=== PATIENT | male | born 1970 | race Caucasian/White ===

== ENCOUNTER 2018-02-13 18:06 | Emergency (ER) | payer MEDICARE, MEDICAID ==
[~2018-02-13] VITALS: Ht 175.3 cm; Wt 74.0 kg
[2018-02-13 18:45] VITALS: BP 136/88
== END 2018-02-13 20:40 | disposition left against medical advice (07) ==
LOC: ER 18:55
DX: M54.2 Cervicalgia (principal); M54.9 Dorsalgia, unspecified; I10 Essential (primary) hypertension; E11.9 Type 2 diabetes mellitus without complications; W18.39XA Other fall on same level, initial encounter; Y93.89 Activity, other specified; Y92.89 Other specified places as the place of occurrence of the external cause; Y99.8 Other external cause status
CPT/HCPCS: 29515; 82962; 99283

== ENCOUNTER 2018-11-23 20:50 | Inpatient (IN) | payer MEDICARE, MEDICAID ==
[~2018-11-23] VITALS: Ht 175.3 cm; Wt 106.6 kg
[~2018-11-23 20:50] MED LIST: DIAZ10TA MT; OXYC10TA48 MT; QUET100T MT
[2018-11-24] MEDS ORDERED: NITROGLYCERIN OINT 1GM/INCH UDPKT TD ONE (00:15)
[2018-11-24] MEDS ORDERED: ASPIRIN 81MG TABLET PO ONE (00:15)
[2018-11-24 01:00] LABS: BASOPHILS % 0.6 % (0.0-2.0); EOSINOPHILS % 4.8 % (0.0-5.0); HEMOGLOBIN. 11.6 g/dL (14.0-18.0); LYMPHOCYTES % 36.9 % (20.0-50.0); MEAN CORPUSCULAR HEMOGLOBIN 28.9 pg (28.0-32.0); MEAN CORPUSCULAR VOLUME 84.6 fL (80.0-94.0); MONOCYTES % 9.5 % (2.0-8.0); NEUTROPHILS % 48.2 % (40.0-76.0); PLATELET 264 x1000/uL (130-400); RED BLOOD CELL COUNT 4.02 mill/uL (4.7-6.1); RED CELL DISTRIBUTION WIDTH 14.6 % (11.6-14.6)
[2018-11-24 01:04] LABS: CHLORIDE 109 mEq/L (98-107)
[2018-11-24 05:30] VITALS: BP 104/84
[2018-11-24] MEDS ORDERED: BENZ1TAB7 PO (06:46)
[2018-11-24] MEDS ORDERED: ESCI10TA54 PO (06:46)
[2018-11-24] MEDS ORDERED: BUPR300T54 PO (06:46)
[2018-11-24] MEDS ORDERED: ASPI-1158 PO (06:46)
[2018-11-24] MEDS ORDERED: METO25TA6 PO (06:46)
[2018-11-24 08:00] VITALS: BP 102/66
[2018-11-24] MEDS ORDERED: ACETAMINOPHEN 325MG TABLET PO PRN (08:00)
[2018-11-24] MEDS ORDERED: ZOLPIDEM TARTRATE 5MG TABLET PO PRN (08:00)
[2018-11-24] MEDS ORDERED: LORAZEPAM 0.5MG TABLET PO PRN (08:00)
[2018-11-24] MEDS ORDERED: TRAMADOL 50MG TABLET PO PRN (08:00)
[2018-11-24] MEDS ORDERED: IPRATROPIUM/ALBUTEROL 0.5-3(2.5)MG/3ML NEB INH PRN (08:00)
[2018-11-24] MEDS ORDERED: NITROGLYCERIN 0.4MG TABLET SL SL PRN (08:00)
[2018-11-24] MEDS ORDERED: CLONIDINE 0.1MG TABLET PO PRN (08:00)
[2018-11-24] MEDS ORDERED: NA PHOS,M-B/NA PHOS,DI-BA ENEMA 118ML PR PRN (08:00)
[2018-11-24] MEDS ORDERED: GUAIFENESIN 200MG/10ML SUGAR FREE UDC PO PRN (08:00)
[2018-11-24] MEDS ORDERED: ONDANSETRON HCL 4MG/2ML INJ IV PRN (08:00)
[2018-11-24] MEDS ORDERED: MAGNESIUM/ALUMINUM HYDROXIDE/SIMETHICONE 30ML UDC PO PRN (08:00)
[2018-11-24] MEDS ORDERED: DOCUSATE SODIUM 100MG CAPSULE PO PRN (08:00)
[2018-11-24] MEDS ORDERED: REGADENOSON 0.4 MG/5 ML IV ONE ×2 (09:00→11:36)
[2018-11-24] MEDS ORDERED: ASPIRIN 325MG EC TABLET PO SCH (09:00)
[2018-11-24] MEDS: CLOPIDOGREL 75MG TABLET PO SCH (09:12)
[2018-11-24] MEDS: FAMOTIDINE 20MG TABLET PO SCH ×2 (09:12→20:30)
[2018-11-24] MEDS: ASPIRIN 81MG TABLET PO SCH (09:12)
[2018-11-24] MEDS: ENOXAPARIN 30MG/0.3ML SYR SUBCUT SCH ×2 (09:13→20:30)
[2018-11-24] MEDS ORDERED: INFLUENZA VIRUS VACCINE(AFLURIA) 0.5ML SYR IM ONE (10:00)
[2018-11-24 11:05] LABS: BASOPHILS % 0.9 % (0.0-2.0); EOSINOPHILS % 8.5 % (0.0-5.0); HEMATOCRIT. 33.1 % (42.0-52.0); HEMOGLOBIN. 11.2 g/dL (14.0-18.0); MEAN CORPUSCULAR VOLUME 85.7 fL (80.0-94.0); MEAN PLATELET VOLUME 8.6 fl (7.4-10.4); MONOCYTES % 11.1 % (2.0-8.0); NEUTROPHILS % 33.5 % (40.0-76.0); PLATELET 237 x1000/uL (130-400); RED BLOOD CELL COUNT 3.87 mill/uL (4.7-6.1); RED CELL DISTRIBUTION WIDTH 14.4 % (11.6-14.6)
[2018-11-24 11:13] LABS: T4 FREE 1.05 ng/dL (0.76-1.46)
[2018-11-24 16:00] VITALS: BP 100/62
[2018-11-24 17:01] LABS: CREATINE KINASE 138 IU/L (39-308)
[2018-11-24 17:10] LABS: CREATINE KINASE MB FRACTION 2.6 ng/mL (0.5-3.6)
[2018-11-24 20:00] VITALS: BP 102/54
[2018-11-24] MEDS: KETOROLAC 30MG/ML VIAL IV PRN (20:36)
[2018-11-24 23:45] LABS: CREATINE KINASE 112 IU/L (39-308)
[2018-11-24 23:46] LABS: CREATINE KINASE MB FRACTION 2.2 ng/mL (0.5-3.6)
[2018-11-25] VITALS: BP 110/56
[2018-11-25 04:00] VITALS: BP 128/77
[2018-11-25 08:00] VITALS: BP 109/68
[2018-11-25] MEDS: CLOPIDOGREL 75MG TABLET PO SCH (08:19)
[2018-11-25] MEDS: FAMOTIDINE 20MG TABLET PO SCH ×2 (08:19→20:41)
[2018-11-25] MEDS: ASPIRIN 81MG TABLET PO SCH (08:19)
[2018-11-25] MEDS: KETOROLAC 30MG/ML VIAL IV PRN ×2 (08:19→15:40)
[2018-11-25] MEDS: ENOXAPARIN 30MG/0.3ML SYR SUBCUT SCH ×2 (08:25→20:41)
[2018-11-25 12:00] VITALS: BP 100/40
[2018-11-25 16:00] VITALS: BP 117/66
[2018-11-25 17:03] LABS: *BENZODIAZEPINES SCREEN URINE NEGATIVE (NEGATIVE); *COCAINE SCREEN URINE NEGATIVE (NEGATIVE); METHADONE URINE SCREEN NEGATIVE (NEGATIVE); OPIATES URINE SCREEN NEGATIVE (NEGATIVE)
[2018-11-25 17:04] LABS: *AMPHETAMINES SCREEN URINE NEGATIVE (NEGATIVE); CANNABINOID URINE SCREEN NEGATIVE (NEGATIVE); PHENCYCLIDINE URINE SCREEN NEGATIVE (NEGATIVE)
[2018-11-25 17:05] LABS: *BARBITURATES SCREEN URINE NEGATIVE (NEGATIVE)
[2018-11-25 20:00] VITALS: BP 122/58
[2018-11-26] VITALS: BP 108/52
[2018-11-26 04:00] VITALS: BP 103/50
[2018-11-26] MEDS: KETOROLAC 30MG/ML VIAL IV PRN (09:29)
[2018-11-26] MEDS: ASPIRIN 81MG TABLET PO SCH (09:32)
[2018-11-26] MEDS: FAMOTIDINE 20MG TABLET PO SCH (09:32)
[2018-11-26] MEDS: ENOXAPARIN 30MG/0.3ML SYR SUBCUT SCH (09:32)
[2018-11-26] MEDS: CLOPIDOGREL 75MG TABLET PO SCH (09:32)
[2018-11-26 10:31] VITALS: BP 132/78
== END 2018-11-26 10:48 | disposition left against medical advice (07) | DRG 303 ==
LOC: ER 20:50 → 6WST 11-24 03:32 → ENRESERV 11-24 04:36
PROVIDERS: ADMIT Internal Medicine; ATTEND Internal Medicine
DX: I25.110 Atherosclerotic heart disease of native coronary artery with unstable angina pectoris (principal); D63.8 Anemia in other chronic diseases classified elsewhere; E88.81 Metabolic syndrome and other insulin resistance; Z53.21 Procedure and treatment not carried out due to patient leaving prior to being seen by health care provider; E78.5 Hyperlipidemia, unspecified; E11.9 Type 2 diabetes mellitus without complications; F17.210 Nicotine dependence, cigarettes, uncomplicated; I10 Essential (primary) hypertension; Z95.5 Presence of coronary angioplasty implant and graft; Z88.0 Allergy status to penicillin; Z91.040 Latex allergy status
CPT/HCPCS: 36415; 71045; 78452; 80061; 80305; 82550; 82553; 82962; 83036; 83880; 84439; 84443; 84484; 85379; 90686; 93005; 93017; 93306; 93970; 99285; A6261; A9500; J1650; J1885; J2785

== ENCOUNTER 2019-01-26 19:07 | Inpatient (IN) | payer MEDICARE, MEDICAID ==
[~2019-01-26] VITALS: Ht 175.3 cm; Wt 113.4 kg
[~2019-01-26 19:07] MED LIST changes: +ASPI-1158 PO; +BENZ1TAB7 PO; +BUPR300T54 PO; +ESCI10TA54 PO; +METO25TA6 PO
[2019-01-26] MEDS ORDERED: ONDANSETRON HCL 4MG/2ML INJ IV ONE (23:45)
[2019-01-26] MEDS ORDERED: FAMOTIDINE 20MG/2ML VIAL IV ONE (23:45)
[2019-01-26 23:57] LABS: BASOPHILS % 0.7 % (0.0-2.0); EOSINOPHILS % 4.3 % (0.0-5.0); HEMATOCRIT. 41.4 % (42.0-52.0); HEMOGLOBIN. 14.1 g/dL (14.0-18.0); LYMPHOCYTES % 37.2 % (20.0-50.0); MEAN CORPUSCULAR HEMOGLOBIN 28.4 pg (28.0-32.0); MEAN CORPUSCULAR VOLUME 83.4 fL (80.0-94.0); MEAN PLATELET VOLUME 8.3 fl (7.4-10.4); MONOCYTES % 6.9 % (2.0-8.0); NEUTROPHILS % 50.9 % (40.0-76.0); PLATELET 312 x1000/uL (130-400); RED BLOOD CELL COUNT 4.97 mill/uL (4.7-6.1); RED CELL DISTRIBUTION WIDTH 14.3 % (11.6-14.6)
[2019-01-27 00:01] LABS: CHLORIDE 104 mEq/L (98-107)
[2019-01-27] MEDS ORDERED: HYDROCODONE/ACETAMINOPHEN 5/325MG TABLET PO NR (01:15)
[2019-01-27] MEDS ORDERED: ENOXAPARIN 40MG/0.4ML SYR SUBCUT SCH (03:30)
[2019-01-27] MEDS ORDERED: CLONIDINE 0.1MG TABLET PO PRN (03:30)
[2019-01-27] MEDS ORDERED: ONDANSETRON HCL 4MG/2ML INJ IV PRN (03:30)
[2019-01-27] MEDS ORDERED: ACETAMINOPHEN 325MG TABLET PO PRN (03:30)
[2019-01-27] MEDS ORDERED: MAGNESIUM/ALUMINUM HYDROXIDE/SIMETHICONE 30ML UDC PO PRN (03:30)
[2019-01-27] MEDS ORDERED: DIPHENHYDRAMINE 50MG/ML VIAL IV PRN (03:30)
[2019-01-27] MEDS ORDERED: IOHEXOL-300 100 ML BOTTLE ONE (04:22)
[2019-01-27] MEDS ORDERED: DEXT 5%/0.45% NACL 1000ML 1,000 ML IV SCH (07:30)
[2019-01-27 08:25] VITALS: BP 98/52
[2019-01-27] MEDS: PANTOPRAZOLE SODIUM 40 MG/VIAL IV SCH (09:30)
[2019-01-27] MEDS: ENOXAPARIN 30MG/0.3ML SYR SUBCUT SCH ×2 (09:31→20:34)
[2019-01-27] MEDS: SODIUM CHLORIDE 0.9% 1,000 ML IV SCH ×2 (10:47→23:20)
[2019-01-27 12:00] VITALS: BP 121/62
[2019-01-27] MEDS: HYDROMORPHONE HCL/PF 2MG/ML CPJ IV PRN ×2 (12:23→20:44)
[2019-01-27] MEDS ORDERED: KCL 20MEQ/100ML PREMIX 100 ML IV SCH (14:00)
[2019-01-27 15:11] LABS: *AMPHETAMINES SCREEN URINE PRESUMTIVE POSITIVE (NEGATIVE); *BARBITURATES SCREEN URINE NEGATIVE (NEGATIVE)
[2019-01-27 15:12] LABS: *BENZODIAZEPINES SCREEN URINE NEGATIVE (NEGATIVE); *COCAINE SCREEN URINE NEGATIVE (NEGATIVE); CANNABINOID URINE SCREEN NEGATIVE (NEGATIVE); METHADONE URINE SCREEN NEGATIVE (NEGATIVE); OPIATES URINE SCREEN PRESUMTIVE POSITIVE (NEGATIVE); PHENCYCLIDINE URINE SCREEN NEGATIVE (NEGATIVE)
[2019-01-27] MEDS ORDERED: BISACODYL 10MG SUPP PR PRN (15:45)
[2019-01-27] MEDS ORDERED: POTASSIUM CHLORIDE 20MEQ TABLET SR PO SCH (15:45)
[2019-01-27 16:00] VITALS: BP 122/72
[2019-01-27 20:00] VITALS: BP 130/74
[2019-01-27] MEDS: METOPROLOL TARTRATE 25MG TABLET PO SCH (20:32)
[2019-01-27] MEDS: ATORVASTATIN CALCIUM 20MG TABLET PO SCH (20:32)
[2019-01-28] VITALS (7 sets, daily range): BP systolic 102–133; BP diastolic 47–74
[2019-01-28] MEDS: HYDROMORPHONE HCL/PF 2MG/ML CPJ IV PRN ×2 (03:37→11:26)
[2019-01-28] MEDS: SODIUM CHLORIDE 0.9% 1,000 ML IV SCH ×2 (03:43→09:08)
[2019-01-28] MEDS: METOPROLOL TARTRATE 25MG TABLET PO SCH ×2 (09:00→20:44)
[2019-01-28] MEDS: PANTOPRAZOLE SODIUM 40 MG/VIAL IV SCH (09:06)
[2019-01-28] MEDS: ENOXAPARIN 30MG/0.3ML SYR SUBCUT SCH ×2 (09:06→20:33)
[2019-01-28] MEDS: ATORVASTATIN CALCIUM 20MG TABLET PO SCH (20:32)
[2019-01-28] MEDS ORDERED: FAMOTIDINE 20MG TABLET PO SCH (21:00)
[2019-01-29] VITALS: BP 12/68
[2019-01-29 04:00] VITALS: BP 130/75
[2019-01-29 08:00] VITALS: BP 131/86
[2019-01-29] MEDS: ENOXAPARIN 30MG/0.3ML SYR SUBCUT SCH (09:00)
[2019-01-29] MEDS: METOPROLOL TARTRATE 25MG TABLET PO SCH (09:00)
== END 2019-01-29 09:22 | disposition home or self-care (01) | DRG 392 ==
LOC: ER 19:07 → 8WST 01-27 02:02 → ENRESERV 01-27 07:12
PROVIDERS: ADMIT Internal Medicine; ATTEND Internal Medicine
DX: K52.9 Noninfective gastroenteritis and colitis, unspecified (principal); K21.9 Gastro-esophageal reflux disease without esophagitis; R07.89 Other chest pain; E66.9 Obesity, unspecified; F41.9 Anxiety disorder, unspecified; F32.9 Major depressive disorder, single episode, unspecified; I25.10 Atherosclerotic heart disease of native coronary artery without angina pectoris; E11.9 Type 2 diabetes mellitus without complications; E78.5 Hyperlipidemia, unspecified; F17.200 Nicotine dependence, unspecified, uncomplicated; I50.9 Heart failure, unspecified; I11.0 Hypertensive heart disease with heart failure; I25.2 Old myocardial infarction; Z82.49 Family history of ischemic heart disease and other diseases of the circulatory system; Z83.3 Family history of diabetes mellitus; Z95.5 Presence of coronary angioplasty implant and graft; Z90.49 Acquired absence of other specified parts of digestive tract; Z68.36 Body mass index [BMI] 36.0-36.9, adult; Z88.0 Allergy status to penicillin; Z91.040 Latex allergy status
CPT/HCPCS: 36415; 71045; 74177; 80061; 80305; 82962; 84484; 93005; 93306; 96361; 96374; 96375; 99285; C9113; J1170; J1200; J1650; J2405; J3480; J3490; Q9967

== ENCOUNTER 2019-02-07 19:30 | Emergency (ER) | payer MEDICARE, MEDICAID ==
[~2019-02-07] VITALS: Ht 175.3 cm; Wt 111.0 kg
[2019-02-07] MEDS ORDERED: KETOROLAC 30MG/ML VIAL IM ONE (23:00)
[2019-02-07] MEDS ORDERED: DIAZEPAM 5 MG TABLET PO ONE (23:00)
[2019-02-08] MEDS ORDERED: HYDROCODONE/ACETAMINOPHEN 5/325MG TABLET PO ONE (00:30)
[2019-02-08 01:15] VITALS: BP 132/76
== END 2019-02-08 01:19 | disposition home or self-care (01) ==
LOC: ER 19:30
DX: M54.5 Low back pain (principal); G89.29 Other chronic pain; I11.0 Hypertensive heart disease with heart failure; E11.9 Type 2 diabetes mellitus without complications; I25.2 Old myocardial infarction; Z86.79 Personal history of other diseases of the circulatory system; F15.10 Other stimulant abuse, uncomplicated; Z98.61 Coronary angioplasty status; Z79.82 Long term (current) use of aspirin; Z79.899 Other long term (current) drug therapy; Z88.0 Allergy status to penicillin; Z91.040 Latex allergy status
CPT/HCPCS: 96372; 99283; J1885

== ENCOUNTER 2019-02-13 14:10 | Emergency (ER) | payer MEDICARE, MEDICAID ==
[~2019-02-13] VITALS: Ht 180.3 cm; Wt 90.0 kg
[2019-02-13 17:18] LABS: *AMPHETAMINES SCREEN URINE NEGATIVE (NEGATIVE); *BARBITURATES SCREEN URINE NEGATIVE (NEGATIVE); *BENZODIAZEPINES SCREEN URINE NEGATIVE (NEGATIVE); *COCAINE SCREEN URINE NEGATIVE (NEGATIVE); METHADONE URINE SCREEN NEGATIVE (NEGATIVE); OPIATES URINE SCREEN PRESUMTIVE POSITIVE (NEGATIVE)
[2019-02-13 17:19] LABS: CANNABINOID URINE SCREEN NEGATIVE (NEGATIVE); PHENCYCLIDINE URINE SCREEN NEGATIVE (NEGATIVE)
[2019-02-13] MEDS ORDERED: KETOROLAC 60MG/2ML VIAL IM ONE (18:00)
[2019-02-13 19:20] VITALS: BP 110/58
== END 2019-02-13 19:32 | disposition home or self-care (01) ==
LOC: ER 14:10
DX: G89.29 Other chronic pain (principal); M54.9 Dorsalgia, unspecified; I11.0 Hypertensive heart disease with heart failure; I50.9 Heart failure, unspecified; I25.2 Old myocardial infarction; I25.10 Atherosclerotic heart disease of native coronary artery without angina pectoris; E11.9 Type 2 diabetes mellitus without complications; F32.9 Major depressive disorder, single episode, unspecified; F15.10 Other stimulant abuse, uncomplicated; Z98.61 Coronary angioplasty status; Z88.0 Allergy status to penicillin; Z91.040 Latex allergy status; Z79.899 Other long term (current) drug therapy
CPT/HCPCS: 80305; 96372; 99283; J1885

== ENCOUNTER 2020-01-25 12:33 | Inpatient (IN) | payer MEDICARE, MEDICAID ==
[~2020-01-25] VITALS: Ht 175.3 cm; Wt 110.2 kg
[~2020-01-25 12:33] MED LIST changes: +BUPR-315 PO; -BUPR300T54 PO; -ESCI10TA54 PO; +ESCI10TA61 PO
[2020-01-25] MEDS ORDERED: ACETAMINOPHEN 325MG TABLET PO STA (13:02)
[2020-01-25 13:14] LABS: BASOPHILS % 0.9 % (0.0-2.0); EOSINOPHILS % 2.4 % (0.0-5.0); HEMATOCRIT. 46.1 % (42.0-52.0); HEMOGLOBIN. 15.4 g/dL (14.0-18.0); LYMPHOCYTES % 30.5 % (20.0-50.0); MEAN CORPUSCULAR HEMOGLOBIN 28.3 pg (28.0-32.0); MEAN CORPUSCULAR VOLUME 84.8 fL (80.0-94.0); MEAN PLATELET VOLUME 8.5 fl (7.4-10.4); MONOCYTES % 6.3 % (2.0-8.0); NEUTROPHILS % 59.9 % (40.0-76.0); PLATELET 323 x1000/uL (130-400); RED BLOOD CELL COUNT 5.43 mill/uL (4.7-6.1); RED CELL DISTRIBUTION WIDTH 15.1 % (11.6-14.6)
[2020-01-25] MEDS ORDERED: NITROGLYCERIN OINT 1GM/INCH UDPKT TD ONE (13:15)
[2020-01-25] MEDS ORDERED: ASPIRIN 81MG TABLET PO ONE (13:15)
[2020-01-25 13:20] LABS: CHLORIDE 110 mEq/L (98-107)
[2020-01-25 14:27] LABS: PROTHROMBIN TIME 10.4 sec (9.6-11.0)
[2020-01-25 16:14] VITALS: BP 154/102
[2020-01-25 16:25] VITALS: BP 154/102
[2020-01-25] MEDS ORDERED: ACETAMINOPHEN 325MG TABLET PO PRN (17:00)
[2020-01-25] MEDS ORDERED: LORAZEPAM 2MG/ML CPJ IV PRN (17:00)
[2020-01-25] MEDS ORDERED: ENOXAPARIN 40MG/0.4ML SYR SUBCUT SCH (17:00)
[2020-01-25] MEDS ORDERED: CLONIDINE 0.1MG TABLET PO PRN (17:00)
[2020-01-25] MEDS: HYDROCODONE/APAP 7.5/325MG 1 TAB TABLET PO PRN (17:24)
[2020-01-25] MEDS: MORPHINE SULFATE 2 MG/ML CPJ (NOT FOR IM USE) IV PRN (19:57)
[2020-01-25] MEDS: ONDANSETRON HCL 4MG/2ML INJ IV PRN (19:57)
[2020-01-25 20:00] VITALS: BP 138/101
[2020-01-25] MEDS: ENOXAPARIN 30MG/0.3ML SYR SUBCUT SCH (20:00)
[2020-01-25 21:25] VITALS: BP 139/85
[2020-01-25 23:43] LABS: CREATINE KINASE 89 IU/L (39-308)
[2020-01-25 23:45] LABS: CREATINE KINASE MB FRACTION 1.9 ng/mL (0.5-3.6)
[2020-01-26] VITALS: BP 115/67
[2020-01-26] MEDS: MORPHINE SULFATE 2 MG/ML CPJ (NOT FOR IM USE) IV PRN (01:11)
[2020-01-26] MEDS: IPRATROPIUM/ALBUTEROL 0.5-3(2.5)MG/3ML NEB NEB SCH ×3 (01:13→14:48)
[2020-01-26 04:00] VITALS: BP 122/77
[2020-01-26 06:34] LABS: BASOPHILS % 0.6 % (0.0-2.0); EOSINOPHILS % 3.7 % (0.0-5.0); HEMATOCRIT. 40.7 % (42.0-52.0); HEMOGLOBIN. 13.8 g/dL (14.0-18.0); LYMPHOCYTES % 34.9 % (20.0-50.0); MEAN CORPUSCULAR HEMOGLOBIN 28.6 pg (28.0-32.0); MEAN CORPUSCULAR VOLUME 84.8 fL (80.0-94.0); MEAN PLATELET VOLUME 8.4 fl (7.4-10.4); MONOCYTES % 7.5 % (2.0-8.0); NEUTROPHILS % 53.3 % (40.0-76.0); PLATELET 285 x1000/uL (130-400); RED CELL DISTRIBUTION WIDTH 15.1 % (11.6-14.6)
[2020-01-26 06:53] LABS: CHLORIDE 107 mEq/L (98-107)
[2020-01-26 07:09] LABS: PHOSPHORUS 3.9 mg/dL (2.5-4.9)
[2020-01-26 07:11] LABS: CREATINE KINASE 70 IU/L (39-308)
[2020-01-26 08:00] VITALS: BP 126/84
[2020-01-26] MEDS: ASPIRIN 81MG EC TABLET PO SCH (09:30)
[2020-01-26] MEDS: ENOXAPARIN 30MG/0.3ML SYR SUBCUT SCH ×2 (09:30→21:15)
[2020-01-26 12:00] VITALS: BP 145/67
[2020-01-26] MEDS: BUPROPION HCL 150MG TABLET XL 24HR PO SCH (12:08)
[2020-01-26] MEDS: HYDROCODONE/APAP 7.5/325MG 1 TAB TABLET PO PRN (13:10)
[2020-01-26 16:00] VITALS: BP 127/75
[2020-01-26] MEDS: METOPROLOL TARTRATE 25MG TABLET PO SCH (16:13)
[2020-01-26 20:00] VITALS: BP 160/92
[2020-01-26] MEDS ORDERED: ATORVASTATIN CALCIUM 40MG TABLET PO SCH (21:00)
[2020-01-26] MEDS: NITROGLYCERIN OINT 1GM/INCH UDPKT TD SCH (21:15)
[2020-01-26] MEDS: OXYCODONE HCL/ACETAMINOPHEN 5/325MG TABLET PO PRN (21:20)
[2020-01-26] MEDS: ONDANSETRON HCL 4MG/2ML INJ IV PRN (22:46)
[2020-01-27] VITALS: BP 139/81
[2020-01-27 03:16] LABS: CLARITY URINE CLEAR (CLEAR); COLOR URINE YELLOW (YELLOW); KETONES URINE NEGATIVE (NEGATIVE); LEUKOCYTE ESTERASE URINE NEGATIVE (NEGATIVE); NITRITE URINE NEGATIVE (NEGATIVE); OCCULT BLOOD URINE NEGATIVE (NEGATIVE); PH URINE 6.5 (4.5-8.0); PROTEIN URINE NEGATIVE (NEGATIVE); SPECIFIC GRAVITY URINE 1.006 (1.005-1.030); UROBILINOGEN URINE 0.2 E.U./dL (0.2-1.0)
[2020-01-27 04:00] VITALS: BP 108/53
[2020-01-27] MEDS: METOPROLOL TARTRATE 25MG TABLET PO SCH (06:00)
[2020-01-27] MEDS: NITROGLYCERIN OINT 1GM/INCH UDPKT TD SCH (06:00)
[2020-01-27 08:00] VITALS: BP 133/87
[2020-01-27] MEDS: ENOXAPARIN 30MG/0.3ML SYR SUBCUT SCH (08:54)
[2020-01-27] MEDS: ASPIRIN 81MG EC TABLET PO SCH (08:54)
[2020-01-27] MEDS: BUPROPION HCL 150MG TABLET XL 24HR PO SCH (08:54)
[2020-01-27] MEDS ORDERED: REGADENOSON 0.4 MG/5 ML IV SCH (09:00)
[2020-01-27] MEDS: OXYCODONE HCL/ACETAMINOPHEN 5/325MG TABLET PO PRN (11:05)
[2020-01-27 12:00] VITALS: BP 139/77
[2020-01-27] MEDS ORDERED: OXYC-515 MT (14:10)
[2020-01-27 15:00] VITALS: BP 139/77
== END 2020-01-27 16:00 | disposition home or self-care (01) | DRG 206 ==
LOC: ER 12:33 → 7WST 15:05 → EDBEDREQ 15:10 → ENRESERV 15:26
PROVIDERS: ADMIT Internal Medicine Nephrology; ATTEND Internal Medicine Nephrology
DX: M94.0 Chondrocostal junction syndrome [Tietze] (principal); I10 Essential (primary) hypertension; G89.29 Other chronic pain; E11.9 Type 2 diabetes mellitus without complications; E78.5 Hyperlipidemia, unspecified; E87.8 Other disorders of electrolyte and fluid balance, not elsewhere classified; F32.9 Major depressive disorder, single episode, unspecified; I25.10 Atherosclerotic heart disease of native coronary artery without angina pectoris; I25.2 Old myocardial infarction; Z95.5 Presence of coronary angioplasty implant and graft; Z98.1 Arthrodesis status; E66.01 Morbid (severe) obesity due to excess calories; Z68.35 Body mass index [BMI] 35.0-35.9, adult
CPT/HCPCS: 36415; 71045; 78452; 80048; 80053; 80061; 81003; 82550; 82553; 83036; 83735; 83880; 84100; 84484; 85025; 93005; 93017; 93306; 94640; 99285; A9500; J1650; J2270; J2405

== ENCOUNTER 2020-05-19 10:31 | Inpatient (IN) | payer MEDICARE, MEDICAID ==
[~2020-05-19] VITALS: Ht 175.3 cm; Wt 117.5 kg
[~2020-05-19 10:31] MED LIST changes: -BENZ1TAB7 PO; +OXYC-515 MT
[2020-05-19] MEDS ORDERED: MORPHINE SULFATE 4 MG/ML CPJ (NOT FOR IM USE) IV ONE (11:00)
[2020-05-19 11:54] LABS: BASOPHILS % 0.5 % (0.0-2.0); EOSINOPHILS % 2.9 % (0.0-5.0); HEMATOCRIT. 42.2 % (42.0-52.0); HEMOGLOBIN. 14.4 g/dL (14.0-18.0); LYMPHOCYTES % 21.1 % (20.0-50.0); MEAN CORPUSCULAR HEMOGLOBIN 29.2 pg (28.0-32.0); MEAN CORPUSCULAR VOLUME 85.3 fL (80.0-94.0); MEAN PLATELET VOLUME 8.7 fl (7.4-10.4); MONOCYTES % 5.8 % (2.0-8.0); NEUTROPHILS % 69.7 % (40.0-76.0); PLATELET 323 x1000/uL (130-400); RED BLOOD CELL COUNT 4.94 mill/uL (4.7-6.1); RED CELL DISTRIBUTION WIDTH 14.4 % (11.6-14.6)
[2020-05-19 11:58] LABS: CHLORIDE 109 mEq/L (98-107)
[2020-05-19] MEDS ORDERED: LORAZEPAM 0.5MG TABLET PO PRN (13:15)
[2020-05-19] MEDS ORDERED: ACETAMINOPHEN 325MG TABLET PO PRN ×2 (13:15)
[2020-05-19] MEDS ORDERED: NITROGLYCERIN 0.4MG TABLET SL SL PRN (13:15)
[2020-05-19] MEDS ORDERED: DEXTROSE 50% WATER 50ML SYRINGE IV PRN (13:15)
[2020-05-19] MEDS ORDERED: KETOROLAC 15MG/ML VIAL IV PRN (13:15)
[2020-05-19] MEDS ORDERED: ONDANSETRON HCL 4MG/2ML INJ IV PRN (13:15)
[2020-05-19] MEDS ORDERED: GUAIFENESIN 200MG/10ML SUGAR FREE UDC PO PRN (13:15)
[2020-05-19] MEDS ORDERED: IPRATROPIUM/ALBUTEROL 0.5-3(2.5)MG/3ML NEB NEB PRN (13:15)
[2020-05-19] MEDS ORDERED: MAGNESIUM/ALUMINUM HYDROXIDE/SIMETHICONE 30ML UDC PO PRN (13:15)
[2020-05-19] MEDS ORDERED: DOCUSATE SODIUM 100MG CAPSULE PO PRN (13:15)
[2020-05-19] MEDS ORDERED: CLONIDINE 0.1MG TABLET PO PRN (13:15)
[2020-05-19] MEDS ORDERED: ZOLPIDEM TARTRATE 5MG TABLET PO PRN (13:15)
[2020-05-19] MEDS ORDERED: ENOXAPARIN 40MG/0.4ML SYR SUBCUT SCH (13:15)
[2020-05-19] MEDS: INSULIN LISPRO 100 UNITS/ML SUBCUT SCH ×3 (13:20→21:00)
[2020-05-19] MEDS: BLOOD SUGAR DIAGNOSTIC STRIP TEST SCH ×2 (13:43→21:30)
[2020-05-19 17:30] VITALS: BP 148/94
[2020-05-19 18:32] VITALS: BP 148/94
[2020-05-19 20:42] LABS: CREATINE KINASE 153 IU/L (39-308)
[2020-05-19 20:43] LABS: CREATINE KINASE MB FRACTION 2.9 ng/mL (0.5-3.6)
[2020-05-19] MEDS ORDERED: ATORVASTATIN CALCIUM 40MG TABLET PO SCH (21:00)
[2020-05-19 21:02] VITALS: BP 128/80
[2020-05-19] MEDS: FAMOTIDINE 20MG TABLET PO SCH (21:27)
[2020-05-19] MEDS: TRAMADOL 50MG TABLET PO PRN (21:29)
[2020-05-19] MEDS: ENOXAPARIN 30MG/0.3ML SYR SUBCUT SCH (21:30)
[2020-05-19 23:58] LABS: CREATINE KINASE 144 IU/L (39-308)
[2020-05-20] VITALS: BP 116/57
[2020-05-20 04:00] VITALS: BP 116/69
[2020-05-20] MEDS: TRAMADOL 50MG TABLET PO PRN (06:14)
[2020-05-20] MEDS: BUPROPION HCL 150MG TABLET XL 24HR PO SCH ×2 (06:15→08:59)
[2020-05-20] MEDS: BLOOD SUGAR DIAGNOSTIC STRIP TEST SCH (07:20)
[2020-05-20] MEDS: INSULIN LISPRO 100 UNITS/ML SUBCUT SCH (07:25)
[2020-05-20 08:00] VITALS: BP 126/72
[2020-05-20] MEDS: FAMOTIDINE 20MG TABLET PO SCH (08:59)
[2020-05-20] MEDS: ENOXAPARIN 30MG/0.3ML SYR SUBCUT SCH (08:59)
[2020-05-20] MEDS ORDERED: ASPIRIN 325MG EC TABLET PO SCH (09:00)
[2020-05-20 09:54] VITALS: BP 126/72
== END 2020-05-20 10:50 | disposition home or self-care (01) | DRG 206 ==
LOC: ER 10:31 → ENRESERV 16:27 → 6WST 18:48
PROVIDERS: ADMIT Internal Medicine; ATTEND Internal Medicine
DX: M94.0 Chondrocostal junction syndrome [Tietze] (principal); E11.9 Type 2 diabetes mellitus without complications; E78.00 Pure hypercholesterolemia, unspecified; I10 Essential (primary) hypertension; I25.10 Atherosclerotic heart disease of native coronary artery without angina pectoris; I25.2 Old myocardial infarction; Z95.5 Presence of coronary angioplasty implant and graft; Z98.1 Arthrodesis status; Z79.899 Other long term (current) drug therapy; Z79.82 Long term (current) use of aspirin; Z88.0 Allergy status to penicillin; Z91.040 Latex allergy status
CPT/HCPCS: 36415; 71045; 80053; 80061; 82550; 82553; 82962; 83036; 83880; 84484; 85025; 93005; 93970; 99285; J1650; J2270

== ENCOUNTER 2020-10-31 18:28 | Emergency (ER) | payer MEDICARE, MEDICAID ==
[~2020-10-31] VITALS: Ht 175.3 cm; Wt 113.0 kg
[2020-10-31 22:24] LABS: *AMPHETAMINES SCREEN URINE NEGATIVE (NEGATIVE); *BARBITURATES SCREEN URINE NEGATIVE (NEGATIVE); *BENZODIAZEPINES SCREEN URINE NEGATIVE (NEGATIVE)
[2020-10-31 22:25] LABS: *COCAINE SCREEN URINE NEGATIVE (NEGATIVE); CANNABINOID URINE SCREEN PRESUMTIVE POSITIVE (NEGATIVE); METHADONE URINE SCREEN NEGATIVE (NEGATIVE); OPIATES URINE SCREEN NEGATIVE (NEGATIVE); PHENCYCLIDINE URINE SCREEN NEGATIVE (NEGATIVE)
[2020-10-31] MEDS ORDERED: KETOROLAC 30MG/ML VIAL IM ONE (23:30)
[2020-11-01 01:06] LABS: BASOPHILS % 0.6 % (0.0-2.0); EOSINOPHILS % 3.9 % (0.0-5.0); HEMATOCRIT. 42.6 % (42.0-52.0); HEMOGLOBIN. 14.4 g/dL (14.0-18.0); LYMPHOCYTES % 30.9 % (20.0-50.0); MEAN CORPUSCULAR HEMOGLOBIN 28.2 pg (28.0-32.0); MEAN CORPUSCULAR VOLUME 83.4 fL (80.0-94.0); MEAN PLATELET VOLUME 8.1 fl (7.4-10.4); MONOCYTES % 5.9 % (2.0-8.0); NEUTROPHILS % 58.7 % (40.0-76.0); PLATELET 317 x1000/uL (130-400); RED BLOOD CELL COUNT 5.11 mill/uL (4.7-6.1)
[2020-11-01 01:09] LABS: CHLORIDE 110 mEq/L (98-107)
[2020-11-01 01:13] LABS: ETHANOL BLOOD < 10 mg/dL
[2020-11-01] MEDS ORDERED: ACETAMINOPHEN WITH CODEINE 300/30MG TABLET PO ONE (02:15)
[2020-11-01] MEDS ORDERED: METHOCARBAMOL 500MG TABLET PO ONE (02:15)
[2020-11-01 03:13] VITALS: BP 145/71
== END 2020-11-01 03:14 | disposition home or self-care (01) ==
LOC: ER 18:28
DX: S20.219A Contusion of unspecified front wall of thorax, initial encounter (principal); S30.0XXA Contusion of lower back and pelvis, initial encounter; I10 Essential (primary) hypertension; E11.9 Type 2 diabetes mellitus without complications; F15.10 Other stimulant abuse, uncomplicated; I25.2 Old myocardial infarction; Z98.890 Other specified postprocedural states; Z87.891 Personal history of nicotine dependence; W01.0XXA Fall on same level from slipping, tripping and stumbling without subsequent striking against object, initial encounter; Y93.89 Activity, other specified; Y92.89 Other specified places as the place of occurrence of the external cause; Y99.8 Other external cause status
CPT/HCPCS: 36415; 71045; 80053; 80305; 80320; 83880; 84484; 85025; 93005; 96372; 99284; J1885; G0480

== ENCOUNTER 2021-03-08 18:20 | Emergency (ER) | payer MEDICARE, MEDICAID ==
[~2021-03-08] VITALS: Ht 175.3 cm; Wt 105.0 kg
[~2021-03-08 18:20] MED LIST changes: -ASPI-1158 PO; +ASPI-1406 PO; +ESCI-7 PO; -ESCI10TA61 PO; -OXYC-515 MT; +OXYC1TAB12 MT
[2021-03-08] MEDS ORDERED: MORPHINE SULFATE 10 MG/ML CPJ IM ONE (21:15)
[2021-03-08] MEDS ORDERED: IBUP-2029 MT (22:34)
[2021-03-08] MEDS ORDERED: P20 MT (22:34)
[2021-03-09 00:21] VITALS: BP 156/96
== END 2021-03-09 00:23 | disposition home or self-care (01) ==
LOC: ER 18:20
DX: M54.5 Low back pain (principal); E11.9 Type 2 diabetes mellitus without complications; I10 Essential (primary) hypertension; I25.2 Old myocardial infarction; F15.10 Other stimulant abuse, uncomplicated; Z98.61 Coronary angioplasty status; Z88.0 Allergy status to penicillin; Z91.040 Latex allergy status; Z79.82 Long term (current) use of aspirin; Z98.1 Arthrodesis status; W01.0XXA Fall on same level from slipping, tripping and stumbling without subsequent striking against object, initial encounter; Y93.89 Activity, other specified; Y92.018 Other place in single-family (private) house as the place of occurrence of the external cause
CPT/HCPCS: 72131; 96372; 99284; J2270

== ENCOUNTER 2021-06-05 11:35 | Inpatient (IN) | payer MEDICARE, MEDICAID ==
[~2021-06-05] VITALS: Ht 175.3 cm; Wt 101.6 kg
[~2021-06-05 11:35] MED LIST changes: +IBUP-2029 MT; +P20 MT
[2021-06-05 12:41] LABS: BASOPHILS % 0.4 % (0.0-2.0); EOSINOPHILS % 2.6 % (0.0-5.0); HEMATOCRIT. 39.5 % (42.0-52.0); HEMOGLOBIN. 13.9 g/dL (14.0-18.0); LYMPHOCYTES % 22.7 % (20.0-50.0); MEAN CORPUSCULAR VOLUME 85.4 fL (80.0-94.0); MEAN PLATELET VOLUME 7.9 fl (7.4-10.4); MONOCYTES % 6.4 % (2.0-8.0); NEUTROPHILS % 67.9 % (40.0-76.0); PLATELET 331 x1000/uL (130-400); RED BLOOD CELL COUNT 4.62 mill/uL (4.7-6.1); RED CELL DISTRIBUTION WIDTH 13.5 % (11.6-14.6)
[2021-06-05 12:45] LABS: CHLORIDE 111 mEq/L (98-107)
[2021-06-05] MEDS ORDERED: MORPHINE SULFATE 4 MG/ML CPJ (NOT FOR IM USE) IV ONE ×2 (12:45→13:45)
[2021-06-05] MEDS ORDERED: NITROGLYCERIN OINT 1GM/INCH UDPKT TD ONE (13:30)
[2021-06-05] MEDS ORDERED: ONDANSETRON HCL 4MG/2ML INJ IV PRN (16:45)
[2021-06-05] MEDS ORDERED: GUAIFENESIN 200MG/10ML SUGAR FREE UDC PO PRN (16:45)
[2021-06-05] MEDS ORDERED: DOCUSATE SODIUM 100MG CAPSULE PO PRN (16:45)
[2021-06-05] MEDS ORDERED: MAGNESIUM/ALUMINUM HYDROXIDE/SIMETHICONE 30ML UDC PO PRN (16:45)
[2021-06-05] MEDS ORDERED: NITROGLYCERIN 0.4MG TABLET SL SL PRN (16:45)
[2021-06-05] MEDS ORDERED: CLONIDINE 0.1MG TABLET PO PRN (16:45)
[2021-06-05] MEDS ORDERED: IPRATROPIUM/ALBUTEROL 0.5-3(2.5)MG/3ML NEB NEB PRN (16:45)
[2021-06-05] MEDS ORDERED: ACETAMINOPHEN 325MG TABLET PO PRN ×2 (16:45)
[2021-06-05] MEDS: ENOXAPARIN 30MG/0.3ML SYR SUBCUT SCH (18:15)
[2021-06-05] MEDS: TRAMADOL 50MG TABLET PO PRN (18:44)
[2021-06-05] MEDS ORDERED: ZOLPIDEM TARTRATE 5MG TABLET PO PRN (21:00)
[2021-06-05] MEDS ORDERED: ATORVASTATIN CALCIUM 40MG TABLET PO SCH (21:00)
[2021-06-05] MEDS: FAMOTIDINE 20MG TABLET PO SCH (21:38)
[2021-06-05] MEDS: LISINOPRIL 20MG TABLET PO SCH (21:39)
[2021-06-05 22:52] LABS: CREATINE KINASE 62 IU/L (39-308)
[2021-06-05 22:53] LABS: CREATINE KINASE MB FRACTION < 1.0 ng/mL (0.5-3.6)
[2021-06-06] MEDS: TRAMADOL 50MG TABLET PO PRN ×2 (02:01→12:16)
[2021-06-06 05:14] LABS: BASOPHILS % 0.7 % (0.0-2.0); EOSINOPHILS % 4.1 % (0.0-5.0); HEMATOCRIT. 40.6 % (42.0-52.0); HEMOGLOBIN. 13.8 g/dL (14.0-18.0); LYMPHOCYTES % 33.7 % (20.0-50.0); MEAN CORPUSCULAR HEMOGLOBIN 29.1 pg (28.0-32.0); MEAN CORPUSCULAR VOLUME 85.5 fL (80.0-94.0); MEAN PLATELET VOLUME 7.5 fl (7.4-10.4); MONOCYTES % 7.5 % (2.0-8.0); PLATELET 301 x1000/uL (130-400); RED BLOOD CELL COUNT 4.75 mill/uL (4.7-6.1); RED CELL DISTRIBUTION WIDTH 13.8 % (11.6-14.6)
[2021-06-06 05:19] LABS: CHLORIDE 107 mEq/L (98-107)
[2021-06-06 05:25] LABS: PHOSPHORUS 3.9 mg/dL (2.5-4.9)
[2021-06-06 05:27] LABS: CREATINE KINASE 55 IU/L (39-308)
[2021-06-06 05:30] LABS: CREATINE KINASE MB FRACTION < 1.0 ng/mL (0.5-3.6)
[2021-06-06] MEDS: ENOXAPARIN 30MG/0.3ML SYR SUBCUT SCH (06:07)
[2021-06-06] MEDS ORDERED: ISOSORBIDE MONONITRATE 30MG TABLET SR 24HR PO SCH (09:00)
[2021-06-06] MEDS ORDERED: ASPIRIN 325MG EC TABLET PO SCH (09:00)
[2021-06-06] MEDS: FAMOTIDINE 20MG TABLET PO SCH (09:46)
[2021-06-06] MEDS: LISINOPRIL 20MG TABLET PO SCH (09:48)
[2021-06-06 11:00] VITALS: BP 127/86
[2021-06-06 12:00] VITALS: BP 125/84
[2021-06-06 12:35] VITALS: BP 128/85
== END 2021-06-06 15:46 | disposition home or self-care (01) | DRG 206 ==
LOC: ER 11:35 → MICUSO 22:17 → 6WST 06-06 07:56
PROVIDERS: ADMIT Internal Medicine; ATTEND Internal Medicine
DX: M94.0 Chondrocostal junction syndrome [Tietze] (principal); I24.9 Acute ischemic heart disease, unspecified; D63.8 Anemia in other chronic diseases classified elsewhere; I25.10 Atherosclerotic heart disease of native coronary artery without angina pectoris; E11.9 Type 2 diabetes mellitus without complications; E78.00 Pure hypercholesterolemia, unspecified; I10 Essential (primary) hypertension; Z95.5 Presence of coronary angioplasty implant and graft; Z88.0 Allergy status to penicillin; Z91.040 Latex allergy status; Z79.1 Long term (current) use of non-steroidal anti-inflammatories (NSAID); Z79.899 Other long term (current) drug therapy
CPT/HCPCS: 36415; 71045; 80053; 82550; 82553; 83036; 83735; 83880; 84100; 84484; 85025; 93005; 99285; J1650; J2270

== ENCOUNTER 2022-05-08 18:30 | Inpatient (IN) | payer MEDICARE, MEDICAID ==
[~2022-05-08] VITALS: Ht 175.3 cm; Wt 119.3 kg
[2022-05-08 23:47] LABS: BASOPHILS % 0.6 % (0.0-2.0); EOSINOPHILS % 2.8 % (0.0-5.0); HEMATOCRIT. 40.3 % (42.0-52.0); HEMOGLOBIN. 13.8 g/dL (14.0-18.0); MEAN CORPUSCULAR HEMOGLOBIN 28.6 pg (28.0-32.0); MEAN CORPUSCULAR VOLUME 83.6 fL (80.0-94.0); MEAN PLATELET VOLUME 7.9 fl (7.4-10.4); MONOCYTES % 9.7 % (2.0-8.0); NEUTROPHILS % 57.9 % (40.0-76.0); PLATELET 307 x1000/uL (130-400); RED BLOOD CELL COUNT 4.83 mill/uL (4.7-6.1); RED CELL DISTRIBUTION WIDTH 15.3 % (11.6-14.6)
[2022-05-08 23:52] LABS: CHLORIDE 109 mEq/L (98-107)
[2022-05-09] MEDS ORDERED: MORPHINE SULFATE 4 MG/ML CPJ (NOT FOR IM USE) IV SCH (00:30)
[2022-05-09] MEDS ORDERED: GUAIFENESIN 200MG/10ML SUGAR FREE UDC PO PRN (07:30)
[2022-05-09] MEDS ORDERED: ACETAMINOPHEN 325MG TABLET PO PRN ×2 (07:30)
[2022-05-09] MEDS ORDERED: DOCUSATE SODIUM 100MG CAPSULE PO PRN (07:30)
[2022-05-09] MEDS ORDERED: KETOROLAC 15MG/ML VIAL IV PRN (07:30)
[2022-05-09] MEDS ORDERED: ZOLPIDEM TARTRATE 5MG TABLET PO PRN (07:30)
[2022-05-09] MEDS ORDERED: CLONIDINE 0.1MG TABLET PO PRN (07:30)
[2022-05-09] MEDS ORDERED: IPRATROPIUM/ALBUTEROL 0.5-3(2.5)MG/3ML NEB NEB PRN (07:30)
[2022-05-09] MEDS ORDERED: NITROGLYCERIN 0.4MG TABLET SL SL PRN (07:30)
[2022-05-09] MEDS ORDERED: NA PHOS,M-B/NA PHOS,DI-BA ENEMA 118ML PR PRN (07:30)
[2022-05-09] MEDS ORDERED: MAGNESIUM/ALUMINUM HYDROXIDE/SIMETHICONE 30ML UDC PO PRN (07:30)
[2022-05-09] MEDS ORDERED: NALOXONE HCL 0.4MG/ML VIAL IV PRN (07:45)
[2022-05-09] MEDS ORDERED: ENOXAPARIN 40MG/0.4ML SYR SUBCUT SCH (08:00)
[2022-05-09] MEDS: HYDROCODONE/ACETAMINOPHEN 10/325MG TABLET PO PRN ×2 (08:55→19:08)
[2022-05-09] MEDS: FAMOTIDINE 20MG TABLET PO SCH ×2 (09:19→21:50)
[2022-05-09 09:46] LABS: *AMPHETAMINES SCREEN URINE NEGATIVE (NEGATIVE); *BARBITURATES SCREEN URINE NEGATIVE (NEGATIVE); *BENZODIAZEPINES SCREEN URINE NEGATIVE (NEGATIVE); *COCAINE SCREEN URINE NEGATIVE (NEGATIVE); CANNABINOID URINE SCREEN NEGATIVE (NEGATIVE); METHADONE URINE SCREEN NEGATIVE (NEGATIVE); OPIATES URINE SCREEN PRESUMTIVE POSITIVE (NEGATIVE); PHENCYCLIDINE URINE SCREEN NEGATIVE (NEGATIVE)
[2022-05-09] MEDS ORDERED: DEXTROSE 50% WATER 50ML SYRINGE IV PRN (10:45)
[2022-05-09] MEDS: KETOROLAC 15MG/ML VIAL IV PRN (11:31)
[2022-05-09] MEDS: BLOOD SUGAR DIAGNOSTIC STRIP TEST SCH ×3 (12:25→21:00)
[2022-05-09] MEDS: INSULIN LISPRO 100 UNITS/ML SUBCUT SCH ×3 (12:44→21:00)
[2022-05-09] MEDS: BACLOFEN 10MG TABLET PO SCH (14:00)
[2022-05-09] MEDS: MORPHINE SULFATE 2 MG/ML CPJ (NOT FOR IM USE) IV PRN ×2 (14:00→21:17)
[2022-05-09 20:30] VITALS: BP 126/62
[2022-05-09] MEDS: ENOXAPARIN 30MG/0.3ML SYR SUBCUT SCH (21:17)
[2022-05-09 21:30] VITALS: BP 126/62
[2022-05-10] VITALS: BP 130/66
[2022-05-10 04:00] VITALS: BP 124/61
[2022-05-10] MEDS: BACLOFEN 10MG TABLET PO SCH ×5 (06:00→23:58)
[2022-05-10] MEDS: MORPHINE SULFATE 2 MG/ML CPJ (NOT FOR IM USE) IV PRN ×2 (06:25→15:24)
[2022-05-10 06:54] LABS: HEMATOCRIT. 39.8 % (42.0-52.0); HEMOGLOBIN. 13.6 g/dL (14.0-18.0); MEAN CORPUSCULAR HEMOGLOBIN 28.7 pg (28.0-32.0); MEAN PLATELET VOLUME 8.3 fl (7.4-10.4); PLATELET 245 x1000/uL (130-400); RED BLOOD CELL COUNT 4.74 mill/uL (4.7-6.1)
[2022-05-10 06:55] LABS: BASOPHILS % 0.5 % (0.0-2.0); EOSINOPHILS % 4.9 % (0.0-5.0); LYMPHOCYTES % 30.9 % (20.0-50.0); MONOCYTES % 9.5 % (2.0-8.0); NEUTROPHILS % 54.2 % (40.0-76.0)
[2022-05-10 07:05] LABS: CHLORIDE 108 mEq/L (98-107)
[2022-05-10] MEDS: BLOOD SUGAR DIAGNOSTIC STRIP TEST SCH ×4 (07:20→21:00)
[2022-05-10] MEDS: INSULIN LISPRO 100 UNITS/ML SUBCUT SCH ×4 (07:20→21:00)
[2022-05-10 08:00] VITALS: BP 139/55
[2022-05-10] MEDS: ENOXAPARIN 30MG/0.3ML SYR SUBCUT SCH ×2 (08:43→20:32)
[2022-05-10] MEDS: FAMOTIDINE 20MG TABLET PO SCH ×2 (08:43→20:31)
[2022-05-10] MEDS: HYDROCODONE/ACETAMINOPHEN 10/325MG TABLET PO PRN ×2 (08:45→20:31)
[2022-05-10] MEDS: KETOROLAC 15MG/ML VIAL IV PRN (11:49)
[2022-05-10 12:00] VITALS: BP 157/86
[2022-05-10 16:00] VITALS: BP 166/70
[2022-05-10 20:00] VITALS: BP 150/70
[2022-05-11 00:04] VITALS: BP 142/55
[2022-05-11 04:00] VITALS: BP 146/83
[2022-05-11] MEDS: HYDROCODONE/ACETAMINOPHEN 10/325MG TABLET PO PRN (04:33)
[2022-05-11] MEDS: BACLOFEN 10MG TABLET PO SCH ×3 (06:00→17:59)
[2022-05-11] MEDS: BLOOD SUGAR DIAGNOSTIC STRIP TEST SCH ×4 (07:20→21:00)
[2022-05-11] MEDS ORDERED: MORPHINE SULFATE 2 MG/ML CPJ (NOT FOR IM USE) IV PRN (07:30)
[2022-05-11] MEDS: INSULIN LISPRO 100 UNITS/ML SUBCUT SCH ×4 (07:50→22:34)
[2022-05-11] MEDS: FAMOTIDINE 20MG TABLET PO SCH ×2 (09:00→21:00)
[2022-05-11 10:30] LABS: PROTHROMBIN TIME 11.1 sec (9.6-11.0)
[2022-05-11] MEDS: DEXAMETHASONE 4MG/ML 1ML VIAL IV SCH ×2 (12:47→17:59)
[2022-05-11] MEDS: OXYCODONE HCL/ACETAMINOPHEN 5/325MG TABLET PO PRN (12:49)
[2022-05-11] MEDS: POLYETHYLENE GLYCOL 3350 (17GM) 1 DOSE PACK PO SCH (17:27)
[2022-05-11] MEDS: DOCUSATE SODIUM 100MG CAPSULE PO SCH (17:27)
[2022-05-11] MEDS ORDERED: TIZA-204 PO (20:00)
[2022-05-11] MEDS ORDERED: BUPR-46 PO (20:01)
[2022-05-11] MEDS ORDERED: GABA-532 PO (20:02)
[2022-05-11] MEDS ORDERED: AMLO2.5T45 PO (20:04)
[2022-05-11] MEDS ORDERED: LOSA50TA41 PO (20:04)
[2022-05-11] MEDS ORDERED: ROSU40TA PO (20:05)
[2022-05-11] MEDS ORDERED: TRAZ-251 PO (20:06)
[2022-05-11] MEDS: ONDANSETRON HCL 4MG/2ML INJ IV PRN (20:48)
[2022-05-12] MEDS: DEXAMETHASONE 4MG/ML 1ML VIAL IV SCH ×2 (01:00→07:11)
[2022-05-12] MEDS: BACLOFEN 10MG TABLET PO SCH ×2 (01:06→07:12)
[2022-05-12] MEDS: OXYCODONE HCL/ACETAMINOPHEN 5/325MG TABLET PO PRN ×2 (03:23→08:41)
[2022-05-12] MEDS: ONDANSETRON HCL 4MG/2ML INJ IV PRN (03:25)
[2022-05-12] MEDS: BLOOD SUGAR DIAGNOSTIC STRIP TEST SCH (07:17)
[2022-05-12 08:41] VITALS: BP 132/72
[2022-05-12] MEDS: FAMOTIDINE 20MG TABLET PO SCH (08:41)
[2022-05-12] MEDS: DOCUSATE SODIUM 100MG CAPSULE PO SCH (08:41)
[2022-05-12] MEDS: POLYETHYLENE GLYCOL 3350 (17GM) 1 DOSE PACK PO SCH (08:42)
== END 2022-05-12 12:30 | disposition left against medical advice (07) | DRG 551 ==
LOC: ER 18:30 → MICUSO 05-09 05:49 → 6EST 05-09 20:47
PROVIDERS: ADMIT Internal Medicine; ATTEND Internal Medicine
DX: M48.07 Spinal stenosis, lumbosacral region (principal); G82.50 Quadriplegia, unspecified; G95.89 Other specified diseases of spinal cord; I10 Essential (primary) hypertension; W18.39XA Other fall on same level, initial encounter; G89.4 Chronic pain syndrome; E11.42 Type 2 diabetes mellitus with diabetic polyneuropathy; R26.89 Other abnormalities of gait and mobility; R53.81 Other malaise; W10.9XXA Fall (on) (from) unspecified stairs and steps, initial encounter; I25.10 Atherosclerotic heart disease of native coronary artery without angina pectoris; M48.02 Spinal stenosis, cervical region; Z79.4 Long term (current) use of insulin; Z82.49 Family history of ischemic heart disease and other diseases of the circulatory system; Z88.0 Allergy status to penicillin; Z91.040 Latex allergy status; Z79.899 Other long term (current) drug therapy; Z79.82 Long term (current) use of aspirin; I25.2 Old myocardial infarction; Y93.89 Activity, other specified; Y92.89 Other specified places as the place of occurrence of the external cause; Y99.8 Other external cause status
CPT/HCPCS: 36415; 71045; 72100; 72131; 72141; 72148; 72192; 73130; 80053; 80305; 82962; 83036; 83735; 83880; 84100; 84484; 85025; 86850; 86900; 93005; 93970; 97116; 97162; 97166; 97530; 99285; J1100; J1650; J1815; J1885; J2270; J2405

== ENCOUNTER 2022-09-24 17:32 | Emergency (ER) | payer MEDICARE, MEDICAID ==
[~2022-09-24] VITALS: Ht 175.3 cm; Wt 113.0 kg
[~2022-09-24 17:32] MED LIST changes: +AMLO2.5T45 PO; -BUPR-315 PO; +BUPR-46 PO; +GABA-532 PO; -IBUP-2029 MT; +LOSA50TA41 PO; -OXYC10TA48 MT; -OXYC1TAB12 MT; -P20 MT; +ROSU40TA PO; +TIZA-204 PO; +TRAZ-251 PO
[2022-09-24 18:00] VITALS: BP 166/89
== END 2022-09-25 00:36 | disposition left against medical advice (07) ==
LOC: ER 17:32
DX: Z53.21 Procedure and treatment not carried out due to patient leaving prior to being seen by health care provider (principal)

== ENCOUNTER 2023-06-30 13:06 | Emergency (ER) | payer MEDICARE, MEDICAID ==
[~2023-06-30] VITALS: Ht 175.3 cm; Wt 119.0 kg
[~2023-06-30 13:06] MED LIST changes: +ALPR0.5T PO; +APIX5TAB PO; +LISI30TA36 PO; +METF-414 MT; +OXYC-100 PO
[2023-06-30 13:09] VITALS: O2SAT 97
[2023-06-30 13:20] VITALS: BP 153/103; PULSE 79; RESP 16; TEMP 98.8
== END 2023-06-30 15:45 | disposition left against medical advice (07) ==
LOC: ER 13:06
DX: Z53.21 Procedure and treatment not carried out due to patient leaving prior to being seen by health care provider (principal)
CPT/HCPCS: 99281

== ENCOUNTER 2023-09-28 19:30 | Emergency (ER) | payer MEDICARE, MEDICAID ==
[~2023-09-28] VITALS: Ht 175.3 cm; Wt 117.0 kg
[~2023-09-28 19:30] MED LIST changes: +ALBU6.7H15 INH; -ALPR0.5T PO; +ALPR0.5T4 PO; -AMLO2.5T45 PO; -APIX5TAB PO; +ATROV INH; +AZIT500T8 PO; +BUPR-114 PO; -BUPR-46 PO; +CETI10TA6 PO; -DIAZ10TA MT; +DICL100G58 TP; +EMPA25TA PO; -ESCI-7 PO; +LISI20TA31 PO; -LISI30TA36 PO; -LOSA50TA41 PO; -METF-414 MT; +METF-416 PO; -METO25TA6 PO; -OXYC-100 PO; +OXYC1TAB5 PO; +P20 PO; -QUET100T MT; -TIZA-204 PO; -TRAZ-251 PO; +[UNRECOGNIZED DRUG - CODE] SQ
[2023-09-28 19:36] VITALS: BP 149/83; TEMP 98.1; O2SAT 98
[2023-09-28 19:43] VITALS: PULSE 84; RESP 20
== END 2023-09-29 00:57 | disposition left against medical advice (07) ==
LOC: ER 19:30
DX: R07.9 Chest pain, unspecified (principal); Z53.21 Procedure and treatment not carried out due to patient leaving prior to being seen by health care provider
CPT/HCPCS: 82962; 93005; 99281

== ENCOUNTER 2024-03-16 13:24 | Emergency (ER) | payer MEDICARE, MEDICAID ==
[~2024-03-16] VITALS: Ht 175.3 cm; Wt 100.0 kg
[2024-03-16 13:43] VITALS: TEMP 98.8; O2SAT 99
[2024-03-16] MEDS: METHOCARBAMOL 500MG TABLET PO ONE (19:46)
[2024-03-16] MEDS: LIDOCAINE 5% PATCH TOP SCH (19:48)
[2024-03-16] MEDS: HYDROCODONE/ACETAMINOPHEN 5/325MG TABLET PO ONE (19:50)
[2024-03-16] MEDS: KETOROLAC 60MG/2ML VIAL IM ONE (21:04)
[2024-03-16 22:24] VITALS: BP 132/78; PULSE 69; RESP 18
[2024-03-16] MEDS: HYDROCODONE/ACETAMINOPHEN 7.5/325MG TABLET PO ONE (22:24)
== END 2024-03-16 19:06 | disposition home or self-care (01) ==
LOC: ER 13:24
DX: M54.50 Low back pain, unspecified (principal); E11.9 Type 2 diabetes mellitus without complications; I10 Essential (primary) hypertension; Z98.890 Other specified postprocedural states; Z88.0 Allergy status to penicillin
CPT/HCPCS: 99284; 96372; J1885

== ENCOUNTER 2024-05-22 10:56 | Emergency (ER) | payer MEDICARE, MEDICAID ==
[~2024-05-22] VITALS: Ht 175.3 cm; Wt 112.5 kg
[2024-05-22 11:03] VITALS: BP 151/91; PULSE 81; RESP 16; TEMP 98.3; O2SAT 98
[2024-05-22 11:33] LABS: BASOPHILS % 0.3 % (0.0-2.0); EOSINOPHILS % 2.4 % (0.0-5.0); HEMATOCRIT. 38.9 % (42.0-52.0); HEMOGLOBIN. 13.3 g/dL (14.0-18.0); MEAN CORPUSCULAR HEMOGLOBIN 29.7 pg (28.0-32.0); MEAN CORPUSCULAR HGB CONC 34.1 g/dL (31.0-37.0); MEAN CORPUSCULAR VOLUME 87.1 fL (80.0-94.0); MEAN PLATELET VOLUME 7.7 fl (7.4-10.4); MONOCYTES % 6.5 % (2.0-8.0); NEUTROPHILS % 71.8 % (40.0-76.0); PLATELET 336 x1000/uL (130-400); RED BLOOD CELL COUNT 4.47 mill/uL (4.7-6.1); RED CELL DISTRIBUTION WIDTH 14.3 % (11.6-14.6); WHITE BLOOD COUNT 6.4 x1000/uL (4.5-11.0)
[2024-05-22 11:42] LABS: CHLORIDE 104 mEq/L (98-107); PARTIAL THROMBOPLASTIN TIME 24.5 sec (23.4-31.0); POTASSIUM 3.6 mEq/L (3.5-5.1); PROTHROMBIN TIME 11.5 sec (9.6-11.0); SODIUM 135 mEq/L (136-145)
[2024-05-22 11:43] LABS: CALCIUM 9.3 mg/dL (8.7-10.4); CARBON DIOXIDE 23 mEq/L (21-32)
[2024-05-22 11:48] LABS: UREA NITROGEN BLOOD 15 mg/dL (9-23)
[2024-05-22 11:49] LABS: TROPONIN I HIGH SENSITIVITY 7 ng/L (3.0-53)
[2024-05-22 12:09] LABS: GLUCOSE 259 mg/dL (70-105)
[2024-05-22] MEDS ORDERED: METF-416 MT (12:35)
[2024-05-22] MEDS ORDERED: LISI20TA31 MT (12:35)
== END 2024-05-22 13:35 | disposition home or self-care (01) ==
LOC: ER 10:56
DX: M79.672 Pain in left foot (principal); M79.671 Pain in right foot; R07.9 Chest pain, unspecified; E11.9 Type 2 diabetes mellitus without complications; I10 Essential (primary) hypertension; Z98.890 Other specified postprocedural states; Z76.0 Encounter for issue of repeat prescription; Z88.0 Allergy status to penicillin; Z91.040 Latex allergy status
CPT/HCPCS: 36415; 71045; 73630; 80048; 83880; 84484; 85025; 93005; 99285

== ENCOUNTER 2024-09-24 15:52 | Emergency (ER) | payer MEDICARE, MEDICAID ==
[~2024-09-24] VITALS: Ht 175.3 cm; Wt 113.0 kg
[~2024-09-24 15:52] MED LIST changes: +GABA-1180 PO; -GABA-532 PO; +LISI20TA31 MT; +METF-416 MT
[2024-09-24 15:57] VITALS: TEMP 98.7; O2SAT 98
[2024-09-24] MEDS: KETOROLAC 30MG/ML VIAL IM ONE (19:40)
[2024-09-24] MEDS: ONDANSETRON 4MG ODT PO ONE (19:42)
[2024-09-24] MEDS: ACETAMINOPHEN 325MG TABLET PO ONE (19:42)
[2024-09-24 20:26] VITALS: BP 169/92; PULSE 61; RESP 20; O2SAT 100
== END 2024-09-24 20:29 | disposition home or self-care (01) ==
LOC: ER 15:52
DX: M54.2 Cervicalgia (principal); I10 Essential (primary) hypertension; E11.9 Type 2 diabetes mellitus without complications; Z88.0 Allergy status to penicillin; Z79.899 Other long term (current) drug therapy; Z79.82 Long term (current) use of aspirin
CPT/HCPCS: 99285; 72125; 96372; Q0162; J1885; L0172

== ENCOUNTER 2024-10-29 19:28 | Emergency (ER) | payer MEDICARE, MEDICAID ==
[~2024-10-29] VITALS: Ht 177.8 cm; Wt 90.0 kg
[2024-10-29 19:35] VITALS: TEMP 98.6; O2SAT 97
[2024-10-29 20:45] LABS: BASOPHILS % 0.3 % (0.0-2.0); EOSINOPHILS % 5.5 % (0.0-5.0); HEMATOCRIT. 39.5 % (42.0-52.0); HEMOGLOBIN. 12.7 g/dL (14.0-18.0); LYMPHOCYTES % 21.8 % (20.0-50.0); MEAN CORPUSCULAR HEMOGLOBIN 29.1 pg (28.0-32.0); MEAN CORPUSCULAR HGB CONC 32.1 g/dL (31.0-37.0); MEAN CORPUSCULAR VOLUME 90.5 fL (80.0-94.0); MEAN PLATELET VOLUME 7.6 fl (7.4-10.4); MONOCYTES % 7.7 % (2.0-8.0); NEUTROPHILS % 64.7 % (40.0-76.0); PLATELET 346 x1000/uL (130-400); RED BLOOD CELL COUNT 4.36 mill/uL (4.7-6.1); RED CELL DISTRIBUTION WIDTH 15.6 % (11.6-14.6); WHITE BLOOD COUNT 6.6 x1000/uL (4.5-11.0)
[2024-10-29 20:53] LABS: CARBON DIOXIDE 25 mEq/L (21-32); CHLORIDE 108 mEq/L (98-107); SODIUM 140 mEq/L (136-145)
[2024-10-29 20:54] LABS: CALCIUM 8.6 mg/dL (8.7-10.4)
[2024-10-29 20:56] LABS: INR 0.9; PROTHROMBIN TIME 10.6 sec (9.6-11.0)
[2024-10-29 20:59] LABS: GLUCOSE 117 mg/dL (70-105); UREA NITROGEN BLOOD 15 mg/dL (9-23)
[2024-10-29 21:02] LABS: TROPONIN I HIGH SENSITIVITY < 4 ng/L (3.0-53)
[2024-10-29] MEDS: HYDROCODONE/ACETAMINOPHEN 5/325MG TABLET PO ONE (21:42)
[2024-10-29] MEDS: METHOCARBAMOL 500MG TABLET PO ONE (21:43)
[2024-10-29] MEDS ORDERED: HYDROCODONE/ACETAMINOPHEN 10/325MG TABLET PO ONE (23:30)
[2024-10-29 23:37] LABS: TROPONIN I HIGH SENSITIVITY < 4 ng/L (3.0-53)
[2024-10-29 23:49] VITALS: BP 150/93; PULSE 87; RESP 18
[2024-10-29] MEDS: HYDROCODONE/ACETAMINOPHEN 10/325MG TABLET PO NR (23:49)
[2024-10-29] MEDS: KETOROLAC 30MG/ML VIAL IM ONE (23:49)
[2024-10-30] MEDS ORDERED: IBUP-2029 MT (00:08)
[2024-10-30] MEDS ORDERED: METH-653 MT (00:08)
[2024-10-30] MEDS ORDERED: LIDO700A30 TP (00:08)
== END 2024-10-30 00:59 | disposition home or self-care (01) ==
LOC: ER 19:28
DX: S33.5XXA Sprain of ligaments of lumbar spine, initial encounter (principal); S13.4XXA Sprain of ligaments of cervical spine, initial encounter; S20.219A Contusion of unspecified front wall of thorax, initial encounter; E11.9 Type 2 diabetes mellitus without complications; I25.2 Old myocardial infarction; I10 Essential (primary) hypertension; I25.10 Atherosclerotic heart disease of native coronary artery without angina pectoris; Z98.890 Other specified postprocedural states; Z79.82 Long term (current) use of aspirin; Z79.899 Other long term (current) drug therapy; Z88.0 Allergy status to penicillin; Z91.040 Latex allergy status; V49.9XXA Car occupant (driver) (passenger) injured in unspecified traffic accident, initial encounter; Y93.89 Activity, other specified; Y92.89 Other specified places as the place of occurrence of the external cause; Y99.8 Other external cause status
CPT/HCPCS: 99285; 72125; 71045; 80048; 85025; 85610; 84484; 36415; 72131; 93005; 96372; J1885